=== PATIENT | male | born 1990 | race Caucasian/White ===

== ENCOUNTER 2017-04-29 13:17 | Emergency (ER) | payer BC, OTHER ==
[2017-04-29 14:09] VITALS: BP 139/80
--- NOTE | 2017-04-29 14:14 | UC ---
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) - History of Current Complaint Chief Complaint: UCSkin Time Seen by Provider: 04/29/17 14:09 Stated Complaint: SKIN COMPLAINT Hx Obtained From: Patient Onset/Duration: Gradual Onset, Lasting Days Onset Severity: Mild Current Severity: Mild Pain Intensity: 0 Location: Other - left hand Character: Pruritus, Raised Aggravating: Nothing Alleviating: Nothing Associated Signs & Symptoms: Positive: Rash - Allergy/Home Medications Allergies/Adverse Reactions: Allergies Allergy/AdvReac Type Severity Reaction Status Date / Time No Known Allergies Allergy Verified 04/29/17 14:03 Home Medications: Home Medications Acetaminophen [Eq Acetaminophen] 1,000 mg PO ONCE PRN 04/29/17 [History Confirmed 04/29/17] Review of Systems Constitutional: Negative Skin: Rash Eyes: Negative ENT: Negative Respiratory: Negative Cardiovascular: Negative Gastrointestinal: Negative Genitourinary: Negative Motor: Negative Neurovascular: Negative Musculoskeletal: Negative Neurological: Negative Psychological: Negative All Other Systems Reviewed And Are Negative: Yes PMH/Surg Hx/FS Hx/Imm Hx Previously Healthy: Yes - Surgical History Surgical History: None - Family History Known Family History: Positive: Hypertension - Social History Alcohol Use: Occasionally Substance Use Type: None Smoking Status (MU): Current Some Day Smoker Type: Smokeless Tobacco Amount Used/How Often: 2 times weekly - Immunization History Most Recent Tetanus Shot: JUN 2015 Physical Exam Triage Information Reviewed: Yes Appearance: Well-Appearing, No Pain Distress, Well-Nourished Vital Signs: Initial Vital Signs Temp 99.3 F 04/29/17 14:04 Pulse 75 04/29/17 14:04 Resp 16 04/29/17 14:04 BP 139/80 04/29/17 14:04 Pulse Ox 100 04/29/17 14:04 Vital Signs Reviewed: Yes Eyes: Positive: Conjunctiva Clear ENT: Positive: Hearing grossly normal Neck: Positive: Supple, Nontender Respiratory: Positive: Lungs clear, Normal breath sounds, No respiratory distress Cardiovascular: Positive: RRR, No Murmur Musculoskeletal: Positive: ROM Intact, No Edema Neurological: Positive: Alert Psychological Exam: Normal Skin Exam: Other - few papules left hand consistent with contact derm Course/Dx - Diagnoses Provider Diagnoses: contact dermatitis Discharge - Discharge Plan Condition: Stable Disposition: HOME Patient Education Materials: Poison Lisa (ED) Referrals: Sue Pacheco MD [Primary Care Provider] - Additional Instructions: ! % hydrocortisone cr if you need it call for any questions return for any problems
== END 2017-04-29 14:35 | disposition home or self-care (01) ==
LOC: UCCORT 13:17
DX: L25.5 Unspecified contact dermatitis due to plants, except food (principal); Z72.0 Tobacco use
CPT/HCPCS: 99211; G0463

== ENCOUNTER 2019-04-02 13:44 | Emergency (ER) | payer BC, OTHER ==
[2019-04-02 14:36] VITALS: BP 137/86
--- NOTE | 2019-04-02 14:43 | UC ---
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 He was seen at [facility] after the injury, had an xray that showed no fx. Pt is continuing to have L knee pain- lateral aspect. He is requesting a referral to an information systems specialist in the [place] area and also a note to remain out of work until seen by the orthopedist. - History of Current Complaint Chief Complaint: UCLowerExtremity Stated Complaint: LEFT KNEE INJURY - W/C Time Seen by Provider: 04/02/19 14:29 Hx Obtained From: Patient Onset/Duration: Sudden Onset, Lasting Days Severity Initially: Moderate Severity Currently: Moderate Pain Intensity: 6 Character: Aching, Stiffness Aggravating Factor(s): Movement, Weight Bearing, Prolonged Standing, Stairs Alleviating Factor(s): Rest Able to Bear Weight: Yes - Allergies/Home Medications Allergies/Adverse Reactions: Allergies Allergy/AdvReac Type Severity Reaction Status Date / Time No Known Allergies Allergy Verified 04/02/19 14:36 Home Medications: Home Medications NK [No Home Medications Reported] 04/02/19 [History Confirmed 04/02/19] PMH/Surg Hx/FS Hx/Imm Hx Previously Healthy: Yes - Surgical History Surgical History: None - Family History Known Family History: Positive: Hypertension - Social History Alcohol Use: Occasionally Substance Use Type: None Smoking Status (MU): Never Smoked Tobacco Type: Smokeless Tobacco Amount Used/How Often: 2 times weekly - Immunization History Most Recent Tetanus Shot: JUN 2015 Review of Systems All Other Systems Reviewed And Are Negative: Yes Skin: Positive: Other - abrasions to lateral left knee Is Patient Immunocompromised?: No Physical Exam Triage Information Reviewed: Yes Appearance: No Pain Distress, Ill-Appearing, Pain Distress Vital Signs: Initial Vital Signs Temp 98.3 F 04/02/19 14:27 Pulse 80 04/02/19 14:27 Resp 16 04/02/19 14:27 BP 137/86 04/02/19 14:27 Pulse Ox 100 04/02/19 14:27 Vital Signs Reviewed: Yes Eye Exam: Normal ENT Exam: Normal Dental Exam: Normal Neck exam: Normal Respiratory Exam: Normal Cardiovascular Exam: Normal Abdominal Exam: Normal Bowel Sounds: Positive: Present Musculoskeletal: Positive: Strength Intact, ROM Intact - but painful, No Edema Neurological Exam: Normal Psychological Exam: Normal Skin Exam: Normal Knee Pain Course/Dx - Course Course Of Treatment: hx obtained, exam performed, meds reviewed, given rferral to ortho for further evaluation of the knee - Differential Dx/Diagnosis Differential Diagnosis/HQI/PQRI: Fracture (Closed), Internal Derangement Of Knee , Sprain, Strain Provider Diagnosis: Left knee pain Discharge - Sign-Out/Discharge Documenting (check all that apply): Patient Departure All imaging exams completed and their final reports reviewed: No Studies - Discharge Plan Condition: Stable Disposition: HOME Patient Education Materials: Knee Pain (ED) Forms: *Work Release Referrals: Sue Pacheco MD [Primary Care Provider] - Danish MURGUIA,Kenny Baez [Medical Doctor] - Additional Instructions: 1. follow up with [facility] in [place], Dr Peng - Billing Disposition and Condition Condition: STABLE Disposition: Home
== END 2019-04-02 14:50 | disposition home or self-care (01) ==
LOC: UCCORT 13:44
DX: M25.562 Pain in left knee (principal); W18.40XA Slipping, tripping and stumbling without falling, unspecified, initial encounter; Y93.02 Activity, running; Y99.0 Civilian activity done for income or pay
CPT/HCPCS: 99211; G0463